=== PATIENT | female | born 1970 | race Caucasian/White ===

== ENCOUNTER 2017-09-04 15:22 | Emergency (ER) | payer MEDICAID, OTHER ==
[~2017-09-04] VITALS: Ht 185.4 cm; Wt 111.0 kg
[2017-09-04] MEDS ORDERED: FLUORESCEIN SODIUM 1MG/STRIP OP ONE ×2 (18:45→21:15)
[2017-09-04] MEDS ORDERED: TETRACAINE 0.5% OPHTH DROPS 4ML OP ONE (18:45)
[2017-09-04] MEDS ORDERED: TETANUS, DIPHTHERIA, PERTUSSIS VAC/PF 0.5ML (>7YR OLD) IM ONE (21:30)
[2017-09-04 21:34] VITALS: BP 119/74
== END 2017-09-04 21:35 | disposition home or self-care (01) ==
LOC: ER 15:43
DX: T15.12XA Foreign body in conjunctival sac, left eye, initial encounter (principal); X58.XXXA Exposure to other specified factors, initial encounter; Y93.89 Activity, other specified; Y92.9 Unspecified place or not applicable; Z23 Encounter for immunization; B19.20 Unspecified viral hepatitis C without hepatic coma
CPT/HCPCS: 90471; 90715; 99283; J7030